=== PATIENT | female | born 1990 | race Asian ===

== ENCOUNTER 2023-08-05 17:47 | Inpatient (IN) | payer BC ==
[~2023-08-05] VITALS: Ht 160 cm; Wt 86.6 kg
[2023-08-05] MEDS ORDERED: METHYLERGONOVINE 0.2 MG/ML AMP IM PRN (18:30)
[2023-08-05] MEDS ORDERED: CARBOPROST 250 MCG/ML AMP IM PRN (18:30)
[2023-08-05 19:05] LABS: BASOPHILS # (AUTO) 0.1 K/uL (0.00-0.22); BASOPHILS % (AUTO) 0.5 % (0.0-2.0); EOSINOPHILS # (AUTO) 0.1 K/uL (0-0.4); EOSINOPHILS % (AUTO) 1.1 % (0.0-4.0); HEMATOCRIT 35.6 % (36-48); HEMOGLOBIN 12.1 g/dL (12.0-16.0); LYMPHOCYTES # (AUTO) 1.8 K/uL (2.5-16.5); LYMPHOCYTES % (AUTO) 16.3 % (20.5-51.1); MEAN CORPUSCULAR HEMOGLOBIN 31 pg (27-31); MEAN CORPUSCULAR HGB CONC 34 g/dL (33-37); MONOCYTES # (AUTO) 0.8 K/uL (0.8-1.0); MONOCYTES % (AUTO) 7.6 % (1.7-9.3); NEUTROPHILS % (AUTO) 74.5 % (42.2-75.2); PLATELET COUNT (AUTO) 210 K/uL (140-450); RED BLOOD CELL COUNT(AUTO) 3.96 MIL/uL (4.20-5.40); WHITE BLOOD COUNT (AUTO) 10.8 K/uL (4.8-10.8)
[2023-08-05 19:07] LABS: APPEARANCE,URINE CLEAR (CLEAR); BILIRUBIN,URINE NEGATIVE (NEGATIVE); BLOOD, URINE NEGATIVE (NEGATIVE); COLOR,URINE YELLOW (YELLOW); LEUKOCYTE ESTERASE ,URINE NEGATIVE (NEGATIVE); NITRITE, URINE NEGATIVE (NEGATIVE); PROTEIN,URINE NEGATIVE (NEGATIVE); UGLUCOSE NEGATIVE (NEGATIVE); UROBILINOGEN,URINE 0.2 EU/dL (0.2 - 1)
[2023-08-05 19:18] LABS: AMPHETAMINE, URINE NEGATIVE ng/ml (NEG <=1000); BARBITURATE, URINE NEGATIVE ng/ml (NEG <=200); BENZODIAZEPINE, URINE NEGATIVE ng/mL (NEG <=200); CANNABINOID, URINE NEGATIVE ng/mL (NEG <=50); COCAINE, URINE NEGATIVE ng/mL (NEG <=300); OPIATE, URINE NEGATIVE ng/mL (NEG <=2000); PHENCYCLIDINE SCREEN,URINE NEGATIVE ng/mL (NEG <=25)
[2023-08-05 19:19] LABS: INR 0.94 (0.8-1.2); PARTIAL THROMBOPLASTIN TIME 27.3 secs (22-35.6); PROTHROMBIN TIME 9.9 secs (10.8-13.4)
[2023-08-05 19:20] LABS: ALBUMIN 2.7 g/dL (3.4-5.0); ANION GAP 14.4 (8-16); CALCIUM 8.4 mg/dL (8.5-10.1); CARBON DIOXIDE 22.2 mmol/L (21-32); CREATININE 0.7 mg/dL (0.6-1.3); POTASSIUM 3.6 mmol/L (3.5-5.1); TOTAL BILIRUBIN 0.3 mg/dL (0.0-1.0); TOTAL PROTEIN, SERUM 7.7 g/dL (6.4-8.2)
[2023-08-05 19:49] VITALS: BP 123/69; PULSE 70; RESP 18; TEMP 98
[2023-08-05] MEDS: LACTATED RINGERS 1,000 ML IV SCH (20:10)
[2023-08-05] MEDS ORDERED: ONDANSETRON 4 MG/2 ML VIAL IVP PRN (20:20)
[2023-08-05] MEDS ORDERED: MORPHINE SULFATE 10 MG/ML VIAL IVP PRN (20:20)
[2023-08-05] MEDS: MISOPROSTOL 25 MCG TAB VG PRN (20:54)
[2023-08-06] MEDS ORDERED: OXYTOCIN 20 UNITS/LR PREMIX 1,000 ML IV ONE (10:03)
[2023-08-06] MEDS: OXYTOCIN 20 UNITS in LACTATED RINGERS 1,000 ML IV SCH (10:26)
[2023-08-06] MEDS ORDERED: ROPIVACAINE 0.2%/NS PREMIX 200 ML EPI ONE (11:05)
[2023-08-06] MEDS ORDERED: AMPICILLIN 2,000 MG VIAL ONE (14:19)
[2023-08-06] MEDS: AMPICILLIN 2,000 MG in NACL 0.9% MINI-BAG PLUS 100 ML IV SCH (14:26)
[2023-08-06] MEDS ORDERED: AMPICILLIN 1,000 MG in NACL 0.9% MINI-BAG PLUS 50 ML IV SCH (18:00)
[2023-08-06] MEDS ORDERED: IBUPROFEN 800 MG TAB PO PRN (19:45)
[2023-08-06] MEDS ORDERED: METHYLERGONOVINE 0.2 MG/ML AMP IM PRN (19:45)
[2023-08-06] MEDS ORDERED: METHYLERGONOVINE 0.2 MG TAB PO PRN (19:45)
[2023-08-06] MEDS ORDERED: oxyCODONE/APAP 5/325 MG 1 TAB TAB PO PRN (19:45)
[2023-08-06] MEDS ORDERED: OXYTOCIN 10 UNITS/ML VIAL IM PRN (19:45)
[2023-08-06] MEDS ORDERED: HYDROcodone/APAP 5/325 MG 1 TAB TAB PO PRN (19:45)
[2023-08-06] MEDS ORDERED: MEASLES, MUMPS, AND RUBELLA 1 VIAL SQVAC ONE (19:45)
[2023-08-06] MEDS ORDERED: TEMAZEPAM 15 MG CAP PO PRN (19:45)
[2023-08-06] MEDS ORDERED: BENZOCAINE/MENTHOL 20%-0.5% 60 GM CAN TP PRN (19:45)
[2023-08-06] MEDS: DOCUSATE SOD/SENNA 50/8.6 MG 1 TAB PO SCH (21:09)
[2023-08-07 05:50] LABS: HEMATOCRIT 32.6 % (36-48); HEMOGLOBIN 11.1 g/dL (12.0-16.0)
== END 2023-08-08 13:21 | disposition home or self-care (01) | DRG 806 ==
LOC: MLD 17:47 → OBSVTOIN 19:00 → MFCC 08-06 19:47
PROVIDERS: ADMIT Obstetrics & Gynecology; ATTEND Obstetrics & Gynecology
PROC: 10E0XZZ Delivery of Products of Conception, External Approach (ICD-10-PCS; principal; 2023-08-06)
PROC: 0HQ9XZZ Repair Perineum Skin, External Approach (ICD-10-PCS; 2023-08-06)
DX: O69.81X0 Labor and delivery complicated by cord around neck, without compression, not applicable or unspecified (principal); O41.03X0 Oligohydramnios, third trimester, not applicable or unspecified; Z37.0 Single live birth; O70.0 First degree perineal laceration during delivery; Z3A.37 37 weeks gestation of pregnancy; Z20.822 Contact with and (suspected) exposure to COVID-19
CPT/HCPCS: 36415; 59409; 76815; 80053; 80305; 81003; 85018; 85025; 85610; 85730; 86592; 86886; 86900; 86901; J0290; J2590; J2795; J7120; Q0092